=== PATIENT | female | born 1965 | race Two or more races ===

== ENCOUNTER 2017-02-02 12:57 | Emergency (ER) | payer MEDICAID ==
[~2017-02-02] VITALS: Ht 160 cm; Wt 71.0 kg
[2017-02-02] MEDS ORDERED: SODIUM CHLORIDE FLUSH 10ML SYR IVF ONE (13:30)
[2017-02-02] MEDS ORDERED: CLINDAMYCIN PMX 600MG/50ML 50 ML IVPB ONE (13:30)
[2017-02-02] MEDS ORDERED: CLINDAMYCIN PMX 600MG/50ML 50 ML ONE (13:59)
[2017-02-02 14:04] LABS: HEMATOCRIT 43.7 % (34.6-47.8); HEMOGLOBIN 14.4 g/dL (11.7-16.4); WHITE BLOOD COUNT 10.6 x10^3/uL (3.4-10)
[2017-02-02 14:11] LABS: BLOOD UREA NITROGEN 11 mg/dL (7-18)
[2017-02-02 16:00] VITALS: BP 118/80
[2017-02-02] MEDS ORDERED: ONDANSETRON 2MG/ML, 2ML ONE (16:06)
[2017-02-02] MEDS ORDERED: HYDROmorphone 1 MG/ML, 1ML ONE (16:06)
[2017-02-02] MEDS ORDERED: HYDROmorphone 1 MG/ML, 1ML IVPush PRN (16:30)
[2017-02-02] MEDS ORDERED: SODIUM CHLORIDE FLUSH 10ML SYR IVF PRN (16:30)
[2017-02-02] MEDS ORDERED: ONDANSETRON 2MG/ML, 2ML IVPush ONE (16:30)
== END 2017-02-02 17:05 | disposition home or self-care (01) ==
LOC: ED 14:18
DX: K01.1 Impacted teeth (principal)
CPT/HCPCS: 36415; 80048; 82040; 85025; 96365; 96375; 99285; J1170; J2405